=== PATIENT | female | born 1990 | race Caucasian/White ===

== ENCOUNTER 2023-12-13 18:17 | Inpatient (IN) | payer BC ==
[~2023-12-13] VITALS: Ht 170.2 cm; Wt 104.5 kg
[~2023-12-13 18:17] MED LIST: COLACE 100100 MG/CAP PO; FLONASEALLERGY NS; LEXAPRO20 MG PO; MOTRIN 800800 MG/TAB PO; PERCOCET 325 MG1 TA2 PO; PRENATAL MVI; ZYRTEC 10MG10 MG PO
[2023-12-21] VITALS (11 sets, daily range): BP systolic 99–113; BP diastolic 44–74; PULSE 64–86; TEMP 98–98.2
[2023-12-21] MEDS ORDERED: LR 1,000 ML IV SCH (05:45)
--- NOTE | 2023-12-21 05:45 | NUR ---
0545 ADM TO 213 FOR REPEAT C/SECT. EFM ON WITH GOOD VARABILITY NOTED. PERMITS SIGNED AND IV STARTED WITH LAB OBTAINED.
[2023-12-21 06:44] LABS: BASO % 0.2 % (0.0-2.0); EOS # 0.1 K/mm3 (0.0-0.7); EOS % 0.4 % (0.0-4.0); GRAN # 8.7 K/mm3 (1.4-6.5); GRAN % 77.5 % (42.2-75.2); LYMPH # 1.7 K/mm3 (1.2-3.4); LYMPH % 14.9 % (20.0-51.0); MEAN CELL VOLUME 81 fl (80.0-100.0); MEAN CORPUSCULAR HGB CONC 32 g/dl (33.0-37.0); MEAN PLATELET VOLUME 11.5 fl (7.4-10.4); MONO # 0.7 K/mm3 (0.1-0.6); MONO % 6.2 % (1.7-9.3); PLATELET COUNT 198 K/mm3 (130-400); REDCELL DISTRIBUTION WIDTH-CV 13.3 % (11.5-14.5)
[2023-12-21 06:54] LABS: HEMATOCRIT 29.8 % (37.0-47.0); HEMOGLOBIN 9.6 g/dl (12.5-16.0); MEAN CORPUSCULAR HEMOGLOBIN 26 pg (27-31)
[2023-12-21] MEDS ORDERED: Magnes Hydrox (MOM) 80 MG/ML 30 ML CUP PO PRN (07:15)
[2023-12-21] MEDS ORDERED: Acetaminophen 500 MG TAB PO PRN (07:15)
[2023-12-21] MEDS ORDERED: Naloxone 0.4 MG/ML VIAL IV PRN (07:15)
[2023-12-21] MEDS ORDERED: oxyCODONE 5 MG TAB PO PRN (07:15)
[2023-12-21] MEDS ORDERED: Loratadine 10 MG TAB PO PRN (07:15)
[2023-12-21] MEDS ORDERED: Ondansetron 4 MG/2 ML VIAL IV PRN (07:15)
[2023-12-21] MEDS ORDERED: Measles/Mumps/Rubella Virus Vaccine Live w Diluent 0.5 ML VIAL SQ SCH (07:15)
[2023-12-21] MEDS ORDERED: LR 1,000 ML IV PRN (07:15)
[2023-12-21] MEDS ORDERED: Sennosides/Docusate 8.6-50 MG TAB PO SCH (08:00)
[2023-12-21] MEDS ORDERED: Ibuprofen 800 MG TAB PO SCH (13:13)
[2023-12-21] MEDS ORDERED: traZODone 50 MG TAB PO PRN (21:00)
[2023-12-22] MEDS ORDERED: Escitalopram 10 MG TAB PO SCH (09:00)
--- NOTE | 2024-01-17 13:56 | NUR ---
DOWNTIME NOTE: An Electronic Health Record (EHR) downtime event occurred during this patient's care. For legal medical record information generated during the downtime period, please reference the patient's legal medical record. Paper or scanned documentation has been incorporated into the legal medical record which is maintained in accordance with Health Information Management (HIM) and record retention policies.
== END 2023-12-23 08:20 | disposition home or self-care (01) | DRG 788 ==
LOC: OB 12-21 05:31
PROVIDERS: ADMIT Obstetrics & Gynecology
PROC: 10D00Z1 Extraction of Products of Conception, Low, Open Approach (ICD-10-PCS; principal; 2023-12-21)
DX: O34.211 Maternal care for low transverse scar from previous cesarean delivery (principal); Z3A.39 39 weeks gestation of pregnancy; Z37.0 Single live birth; O99.214 Obesity complicating childbirth; O99.344 Other mental disorders complicating childbirth; F41.9 Anxiety disorder, unspecified; F32.A Depression, unspecified; O13.4 Gestational [pregnancy-induced] hypertension without significant proteinuria, complicating childbirth